=== PATIENT | female | born 1975 | race Asian ===

== ENCOUNTER 2017-04-11 10:44 | Day surgery (SDC) | payer OTHER ==
[~2017-04-11] VITALS: Ht 160 cm; Wt 62.6 kg
[~2017-04-11 10:44] MED LIST: FLUO40CA PO; MULT-666 PO; Sodium Chloride LOK Flush 10 mL Syringe IV PRN; fentaNYL-PF 50 mCg/mL 2 mL Inj IVPUSH PRN
[2017-04-11 11:09] VITALS: BP 129/86; PULSE 88; RESP 17; O2SAT 95
[2017-04-11] MEDS ORDERED: 0.9% Sodium Chloride 1,000 ML IV ONE (12:34)
[2017-04-11 12:42] VITALS: BP 96/53; PULSE 80; RESP 16; O2SAT 100
[2017-04-11 12:52] VITALS: BP 101/46; PULSE 77; RESP 16; O2SAT 98
[2017-04-11 13:02] VITALS: BP 101/46; PULSE 89; RESP 16; O2SAT 100
--- NOTE | 2017-04-11 21:23 | ENDO ---
[address] [address] ENDOSCOPY PROCEDURE PATIENT: BECCA WINTERS : 1975 MR#: [id number] ADMIT: 04/11/2017 JOB ID: [id number] TYPE OF OPERATION: Esophagogastroduodenoscopy, biopsy. Colonoscopy, biopsy. PREOPERATIVE DIAGNOSIS(ES): 1. Epigastric pain. 2. Constipation. POSTOPERATIVE DIAGNOSIS: Normal upper endoscopy, status post biopsy. Normal colonoscopy, status post biopsy. ANESTHESIA: Fentanyl 200 mcg, Versed 12 mg IV administered. COMPLICATIONS: None. BLOOD LOSS: Minimal. DESCRIPTION OF PROCEDURE: After risks and benefits explained to the patient, informed consent was obtained. After anesthesia administered, upper endoscope was inserted in the mouth and intubated into the esophagus, stomach, second portion of duodenum. Mucosa carefully examined. After procedure was done, the scope was withdrawn and the procedure terminated. Colonoscope was inserted per rectum to the terminal ileum and mucosa carefully examined. Prep of the patient was excellent. After the procedure was done, the scope was removed and the procedure terminated. FINDINGS: Upon inspection of the esophagus, the esophagus was normal without masses, ulcers, lesions. Z-line was located at 40 cm from incisors. Upon entering the stomach, the stomach was also normal without masses, ulcers, or lesions. Retroflexion was normal. Duodenal bulb, first and 2nd portion normal. Biopsies taken at the duodenum, antrum, and body. Upon inspection of the anus, no masses, hemorrhoids, ulcers, or fissures that were seen. Throughout the entire examination, there were no polyps, masses, or lesions. The colon was quite torturous. Biopsies taken at terminal and random colon. Retroflexion was normal. IMPRESSION: 1. Normal colonoscopy, status post biopsy but it was a tortuous colon. 2. Normal upper endoscopy, status post biopsy. RECOMMENDATION: Await pathology results. Follow up in GI Clinic as needed.
--- NOTE | 2017-04-15 13:10 | PATH ---
SURGICAL PATHOLOGY Attending Physician:Mihir Braden MD CASE STATUS: Signed Out PATIENT NAME: BECCA WINTERS PID: [id number] : 1975 DATE COLLECTED:04/11/2017 19:58 SPECIMEN: 1: Duodenum, Biopsy 2: Stomach, Antrum, Biopsy 3: Gastric, Biopsy 4: Ileum, Biopsy 5: Colon, Biopsy CLINICAL HISTORY: 1). DUODENUM BIOPSY 2). ANTRUM BIOPSY 3). GASTRIC BIOPSY 4). TERMINAL ILEUM BIOPSY 5). RANDOM COLON FINAL DIAGNOSIS: 1.DUODENUM, BIOPSY: DUODENAL MUCOSA WITH NO DIAGNOSTIC ABNORMALITY. Negative for active inflammation, features of sprue, dysplasia, and malignancy. 2.STOMACH, ANTRUM, BIOPSY: ANTRAL MUCOSA WITH NO DIAGNOSTIC ABNORMALITY. Negative for Helicobacter organisms. Negative for intestinal metaplasia. Negative for dysplasia and malignancy. 3.STOMACH, BIOPSY: BODY-TYPE MUCOSA WITH NO DIAGNOSTIC ABNORMALITY. Negative for Helicobacter organisms by immunohistochemistry. Negative for intestinal metaplasia. Negative for dysplasia and malignancy. 4.TERMINAL ILEUM, BIOPSY: SMALL BOWEL MUCOSA WITH NO DIAGNOSTIC ABNORMALITY. Negative for active inflammation, dysplasia and malignancy. 5.RANDOM COLON, BIOPSIES: COLONIC MUCOSA WITH NO DIAGNOSTIC ABNORMALITY. Negative for active, chronic and microscopic colitis. Negative for dysplasia and malignancy. ICD10 codeR10.9 GROSS DESCRIPTION: The specimen is received in five formalin filled containers labeled with the patient's name. 1). The specimen is sublabeled "duodenal" and consists of 3 portions of tissue which aggregate to 0.3 x 0.3 x 0.2 CM. The specimen is entirely submitted in cassette 1A. 2). The specimen is sublabeled "antrum" and consists of 2 portions of tissue which aggregate to 0.4 x 0.3 x 0.2 CM. The specimen is entirely submitted in cassette 2A. 3). The specimen is sublabeled "gastric" and consists of 2 portions of tissue which aggregate to 0.3 x 0.3 x 0.2 CM. The specimen is entirely submitted in cassette 3A. 4). The specimen is sublabeled " TI " and consists of 2 portions of tissue which aggregate to 0.3 x 0.2 x 0.2 CM. The specimen is entirely submitted in cassette 4A. 5). The specimen is sublabeled "random colon" and consists of 5 portions of tissue which aggregate to 0.4 x 0.4 x 0.2 CM. The specimen is entirely submitted in cassette 5A. 04/11/2017 [facility] MICRO DESCRIPTION: 3.An immunohistochemical stain was performed to evaluate for Helicobacter organisms and is negative. A control stain showed appropriate reactivity. This test was developed and its performance characteristics determined by [facility]. It has not been cleared or approved by the [place]. Food and Drug Administration. The FDA has determined that such clearance or approval is not necessary. This test is used for clinical purposes. It should not be regarded as investigational or for research. ICD-9 CODES: CPT CODES: 1: 98288 2: 00383 3: 95910, 35530 4: 67379 5: 67701 Electronically Signed Out Angela Landry MD [facility] Pathology [facility] [address], [place] [address] Technical component performed at [facility], [address], [place], [address]
== END 2017-04-11 23:59 | disposition home or self-care (01) ==
LOC: END 10:44
PROVIDERS: ATTEND Internal Medicine Gastroenterology
DX: K59.00 Constipation, unspecified (principal); R10.13 Epigastric pain; R10.32 Left lower quadrant pain
CPT/HCPCS: 43239; 45380; 99153; G0500; J7030